=== PATIENT | male | born 1950 | race Caucasian/White ===

== ENCOUNTER → 2017-01-26 | Outpatient (CLI) | payer MEDICARE, OTHER ==
[~2017-01-26] MED LIST: ACCUNEB SO1.25 MG/1 INH; COQ-10100 MG PO; DESONIDE CR. 1515 GM TOP; FERROUS GLUCON324 M2 PO; FOLIC ACID1 MG PO; HYDROCODONE-AP1 EAC6 PO; LORATIDINE 10 M10 M1 PO; MSL20MG/ML PO; NEXIUM40 MG PO; NORCO 10-325 T1 EACH PO; RAPAFLO4 MG PO; RESTORIL30 MG PO; SPIRIVA INH; THYROXIN; TOPAMAX50 MG PO; UROCIT-K15 MEQ PO; VITAMIN D1000 UNI1 PO; XANAX 0.5 MG0.5 MG PO; ZOLOFT25 MG PO; [UNRECOGNIZED DRUG - OTHER]
== END ==
LOC: M.RAD 12:44
DX: N17.9 Acute kidney failure, unspecified (principal); N18.3 Chronic kidney disease, stage 3 (moderate); J43.1 Panlobular emphysema; E03.9 Hypothyroidism, unspecified; G43.909 Migraine, unspecified, not intractable, without status migrainosus; R09.89 Other specified symptoms and signs involving the circulatory and respiratory systems; Z87.09 Personal history of other diseases of the respiratory system; Z98.890 Other specified postprocedural states

== ENCOUNTER 2017-03-21 16:03 | Emergency (ER) | payer MEDICARE, OTHER ==
[~2017-03-21] VITALS: Ht 172.7 cm; Wt 131.5 kg
[2017-03-21] MEDS ORDERED: FERROUS GLUCON324 M2 PO (16:29)
[2017-03-21] MEDS ORDERED: THYROXIN (16:30)
[2017-03-21] MEDS ORDERED: ZOLOFT25 MG PO (16:30)
[2017-03-21] MEDS ORDERED: SPIRIVA INH (16:31)
[2017-03-21] MEDS ORDERED: NEXIUM40 MG PO (16:31)
[2017-03-21] MEDS ORDERED: VITAMIN D1000 UNI1 PO (16:31)
[2017-03-21] MEDS ORDERED: MSL20MG/ML PO (16:32)
[2017-03-21] MEDS ORDERED: TOPAMAX50 MG PO (16:33)
[2017-03-21] MEDS ORDERED: NORCO 10-325 T1 EACH PO (16:33)
[2017-03-21] MEDS ORDERED: XANAX 0.5 MG0.5 MG PO (16:33)
[2017-03-21] MEDS ORDERED: LORATIDINE 10 M10 M1 PO (16:34)
[2017-03-21] MEDS ORDERED: RAPAFLO4 MG PO (16:34)
[2017-03-21] MEDS ORDERED: RESTORIL30 MG PO (16:34)
[2017-03-21] MEDS ORDERED: UROCIT-K15 MEQ PO (16:34)
[2017-03-21] MEDS ORDERED: ACCUNEB SO1.25 MG/1 INH (16:35)
[2017-03-21] MEDS ORDERED: [UNRECOGNIZED DRUG - OTHER] (16:35)
[2017-03-21] MEDS ORDERED: DESONIDE CR. 1515 GM TOP (16:35)
[2017-03-21] MEDS ORDERED: COQ-10100 MG PO (16:36)
[2017-03-21] MEDS ORDERED: FOLIC ACID1 MG PO (16:36)
[2017-03-21] MEDS ORDERED: HYDROCODONE-AP1 EAC6 PO (18:36)
[2017-03-21 18:55] VITALS: BP 120/70
== END 2017-03-21 18:56 | disposition home or self-care (01) ==
LOC: M.ERS 16:03
DX: S52.021A Displaced fracture of olecranon process without intraarticular extension of right ulna, initial encounter for closed fracture (principal); S09.8XXA Other specified injuries of head, initial encounter; S46.391A Other injury of muscle, fascia and tendon of triceps, right arm, initial encounter; S80.01XA Contusion of right knee, initial encounter; Z88.5 Allergy status to narcotic agent; Z91.041 Radiographic dye allergy status; W18.39XA Other fall on same level, initial encounter; Y93.89 Activity, other specified; Y92.89 Other specified places as the place of occurrence of the external cause; Y99.8 Other external cause status

== ENCOUNTER → 2017-12-21 | Outpatient (CLI) | payer MEDICARE, OTHER | LOC: M.RAD 12:15 | DX: M25.551 Pain in right hip (principal) ==

== ENCOUNTER 2019-02-27 14:28 | Emergency (ER) | payer MEDICARE, OTHER ==
[~2019-02-27] VITALS: Ht 167.6 cm; Wt 117.9 kg
[2019-02-27 15:11] LABS: ABSOLUTE BASOPHILS 0.1 thou/uL (0.0-0.2); ABSOLUTE EOSINOPHILS 0.4 thou/uL (0.0-0.7); ABSOLUTE LYMPHOCYTES 0.8 thou/uL (0.8-5.3); ABSOLUTE MONOCYTES 0.6 thou/uL (0.0-1.2); ABSOLUTE NEUTROPHILS 4.8 thou/uL (1.6-8.1); BASOPHILS 0.9 %; EOSINOPHILS 5.5 %; HEMATOCRIT 32.5 % (42.0-52.0); LYMPHOCYTES 12.3 %; MCH 30.3 pg (26.0-34.0); MCHC 33.7 g/dL (28.0-37.0); MCV 89.8 fL (80.0-100.0); MONOCYTES 9.3 %; MPV 7.9 fl. (7.2-11.1); NUCLEATED RBCS 0 /100WBC; PLATELET COUNT* 203 thou/uL (150-400); RBC 3.62 mil/uL (4.50-6.00); RDW-CV 14.4 % (10.5-14.5); WBC 6.7 thou/uL (4.0-11.0)
[2019-02-27] MEDS ORDERED: VITAMIN D21250 MC1 PO (15:13)
[2019-02-27] MEDS ORDERED: GABAPENTIN100 MG PO (15:14)
[2019-02-27] MEDS ORDERED: LEVOXYL75 MCG PO (15:14)
[2019-02-27] MEDS ORDERED: LOPRESSOR50 MG PO (15:16)
[2019-02-27] MEDS ORDERED: POTASSIUM20 PO (15:17)
[2019-02-27] MEDS ORDERED: TAMSULOSIN HCL0.4 MG PO (15:17)
[2019-02-27] MEDS ORDERED: SPIRIVA18 MCG INH (15:17)
[2019-02-27] MEDS ORDERED: DEMADEX20 MG PO (15:18)
[2019-02-27] MEDS ORDERED: TRAMADOL 50 MG50 MG PO (15:19)
[2019-02-27] MEDS ORDERED: COUMADIN 2.5MG2.5 M1 PO (15:20)
[2019-02-27] MEDS ORDERED: ZOLOFT100 MG PO (15:20)
[2019-02-27 15:22] LABS: CALCIUM 10.2 mg/dL (8.5-10.1); CREATININE 2.5 mg/dL (0.6-1.3); POTASSIUM 3.7 mmol/L (3.5-5.1)
[2019-02-27 15:27] LABS: ALBUMIN 3.1 g/dL (3.4-5.0); TOTAL BILIRUBIN 0.6 mg/dL (<0.1-1.0); TOTAL PROTEIN 7.6 g/dL (6.4-8.2)
[2019-02-27 17:33] VITALS: BP 95/65
== END 2019-02-27 17:34 | disposition home or self-care (01) ==
LOC: M.ERS 14:28
PROVIDERS: Physician Assistant
DX: K62.89 Other specified diseases of anus and rectum (principal); N18.3 Chronic kidney disease, stage 3 (moderate); J44.9 Chronic obstructive pulmonary disease, unspecified; Z88.5 Allergy status to narcotic agent; Z91.041 Radiographic dye allergy status; Z88.8 Allergy status to other drugs, medicaments and biological substances; Z91.010 Allergy to peanuts